=== PATIENT | female | born 1955 | race Caucasian/White ===

== ENCOUNTER → 2017-02-15 | Outpatient (CLI) | payer OTHER ==
--- NOTE | ~2017-02-15 | CT4 ---
[facility] A Service of [facility] RADIOLOGY TEXT RESULTS PATIENT: MARLA HILLS LOCATION: [facility] : 53 UNIT #: [id number] AGE: [address]: Errol Rebolledo MD SEX: F ORDER DR: [id number] [facility] [address] [place] [facility]. [place], [place] [address] [id number] O MR#: [id number] Acc #: [id number] NAME: MARLA HILLS. : 1955 SEX: F STUDY DATE/TIME: 02/15/2017 8:25 UNIT: [facility] ROOM: STUDY DESCRIPTION: CT Abd and Pelv Wo Cont Attending Physician: Errol Rebolledo M.D. Referring Physician: Errol Rebolledo M.D. Ordering Physician: Errol Rebolledo M.D. Primary Care Physician: Errol Rebolledo M.D. MEDICAL IMAGING REPORT This report is preliminary unless electronic signature is present EXAM CT abdomen and pelvis without contrast INDICATIONS Hematuria and left flank pain for the past [address] of the abdomen and pelvis. This CT exam was performed with one or more of the following radiation dose reduction techniques: automatic exposure control, adjustment of mA and/or kV according to patient size, and iterative reconstruction. COMPARISON None FINDINGS Included lung bases are clear. Liver, spleen, kidneys, adrenal glands, pancreas and gallbladder have an unremarkable unenhanced appearance. There are a few uncomplicated sigmoid diverticula. Moderate colonic stool burden. Appendix normal. No radiodense urinary system calculus or hydronephrosis. Tiny fat-containing umbilical hernia. PELVIS WITHOUT CONTRAST: No radiodense bladder calculus. No pelvic mass or fluid. No aggressive-appearing bone lesion. IMPRESSION 1. No acute findings in the abdomen or pelvis. No radiodense urinary system calculus or hydronephrosis. 2. A few uncomplicated sigmoid diverticula. Dictated by... [facility] A Service of [facility] RADIOLOGY TEXT RESULTS PATIENT: MARLA HILLS LOCATION: [facility] : 53 UNIT #: [id number] AGE: [address]: Errol Rebolledo MD SEX: F ORDER DR: Roscoe Blackwood M.D. THIS IS AN ELECTRONICALLY VERIFIED REPORT Roscoe Blackwood M.D. at 02/17/2017 7:03 AM ISAAC/jackson TD: 02/15/2017 18:27 JOB #: [id number] MEDICAL IMAGING REPORT Page 1 of 1 COPY
== END | disposition home or self-care (01) ==
LOC: CCAT 07:45 → SCT 08:30
DX: R31.9 Hematuria, unspecified (principal); R10.9 Unspecified abdominal pain; K57.30 Diverticulosis of large intestine without perforation or abscess without bleeding
CPT/HCPCS: 74176